=== PATIENT | male | born 1970 | race Caucasian/White ===

== ENCOUNTER 2024-11-12 18:12 | Inpatient (IN) | payer SELFPAY ==
[~2024-11-12] VITALS: Ht 170.2 cm; Wt 108.0 kg
[2024-11-12] MEDS: SODIUM CHLORIDE 0.9% 1000ML 1,000 ML IV STA ×3 (19:07→23:53)
[2024-11-12] MEDS: FAMOTIDINE 20 MG/2 ML VIAL IV STA (19:07)
[2024-11-12] MEDS: ONDANSETRON HCL INJ 2MG/ML 2ML 2 MG/ML VIAL IV STA ×2 (19:07→20:07)
[2024-11-12 19:21] LABS: ALBUMIN 4.3 g/dL (3.5-5.0); ALBUMIN/GLOBULIN RATIO 0.4 (0.8-2.0); BILIRUBIN,TOTAL 0.3 mg/dL (0.2-1.2); CALCIUM 9.5 mg/dL (8.4-10.2); POTASSIUM 3.8 mmol/L (3.5-5.1); TOTAL PROTEIN 15.3 g/dL (6.5-8.1)
[2024-11-12 19:27] LABS: TROPONIN I 0.006 ng/mL (0-0.300)
[2024-11-12 19:44] LABS: BILIRUBIN,URINE NEGATIVE (NEGATIVE); CLARITY,URINE CLEAR (CLEAR); COLOR,URINE YELLOW (YELLOW); GLUCOSE, URINE 500 (NEGATIVE); KETONES,URINE 2+ (NEGATIVE); LEUKOCYTE ESTERASE ,URINE NEGATIVE (NEGATIVE); NITRITE,URINE NEGATIVE (NEGATIVE); PH,URINE 5.5 (5 - 7); PROTEIN,URINE DIPSTICK 1+ (NEGATIVE); URINE UROBILINOGEN 0.2 mg/dL (0.2 - 1)
[2024-11-12 19:46] LABS: AMPHETAMINES SCREEN,URINE NEGATIVE (NEGATIVE); BENZODIAZEPINES SCREEN,URINE POSITIVE (NEGATIVE); CANNABINOIDS SCREEN,URINE NEGATIVE (NEGATIVE); COCAINE SCREEN,URINE NEGATIVE (NEGATIVE); METHADONE SCREEN, URINE NEGATIVE (NEGATIVE); OPIATES SCREEN,URINE NEGATIVE (NEGATIVE); PHENCYCLIDINE SCREEN,URINE NEGATIVE (NEGATIVE)
[2024-11-12 19:49] LABS: BACTERIA,URINE RARE /HPF; EPITHELIAL CELLS,URINE RARE /LPF; RBC,URINE 0-5 /HPF (0-5); WBC,URINE (MAN) 0-5 /HPF (0-5)
[2024-11-12] MEDS: BELLADONNA ALK/PHENOBARBITAL 5 ML UDC PO ONE (20:02)
[2024-11-12] MEDS: LIDOCAINE VISC 2% SOLN 15 ML UDC PO STA (20:02)
[2024-11-12] MEDS: MAGNESIUM/ALUMINUM/SIMETHICONE 30 ML UDC PO STA (20:02)
[2024-11-12] MEDS: Morphine 4mg INJECTION 4 MG/ML INJ IV STA (20:03)
[2024-11-12 20:28] LABS: HEMATOCRIT 41.7 % (38.2-49.6); RED BLOOD COUNT 5.21 x10e6/uL (4.3-5.7); WHITE BLOOD COUNT 15.29 x10e3/uL (4.8-10.8)
[2024-11-12 20:29] LABS: MEAN CORPUSCULAR HEMOGLOBIN 29.2 pg (28-32); MEAN CORPUSCULAR VOLUME 81.1 fL (81-99)
[2024-11-12 20:30] LABS: PLATELET COUNT 321 x10e3/uL (140-360); RED CELL DISTRIBUTION WIDTH 12.7 % (11.7-14.4)
[2024-11-12] MEDS: SODIUM CHLORIDE 0.9% 1000ML 1,000 ML IV SCH (20:30)
[2024-11-12 20:31] LABS: BASOPHILS % 0.5 % (0.0-1.0); EOSINOPHILS % 1.3 % (0.0-6.0); LYMPHOCYTES % 8.2 % (18.0-39.1); MONOCYTES % 4.2 % (4.4-11.3); NEUTROPHILS % 84.6 % (38.7-80.0)
[2024-11-12 20:32] LABS: BASOPHILS # (AUTO) 0.1 (0.0-0.1); EOSINOPHILS # (AUTO) 0.2 (0.0-0.4); LYMPHOCYTES # (AUTO) 1.3 (1.0-3.2); MONOCYTES # (AUTO) 0.6 (0.2-0.8); NEUTROPHILS # (AUTO) 12.9 (2.1-6.9)
[2024-11-12] MEDS: ACETAMINOPHEN 325 MG TAB PO STA (21:15)
[2024-11-12 21:25] LABS: ANION GAP 18.8 mmol/L (8-16)
[2024-11-12] MEDS: OXYMETAZOLINE HCL 0.05% NAS 1 SPRAY BTL SCH (21:39)
[2024-11-12] MEDS ORDERED: IOPAMIDOL 370 MG/ML 100 ML INFUS..BTL INJ ONE (21:52)
[2024-11-12 21:58] LABS: CREATININE, SERUM 1.09 mg/dL (0.72-1.25)
[2024-11-12 23:22] LABS: ABG PCO2 35 mmHg (35-45); ABG PH 7.34 (7.35-7.45)
[2024-11-12 23:23] LABS: ABG HCO3 19 mmol/L (22-26); ABG PO2 79 mmHg (80-105); ABG TCO2 20
[2024-11-12] MEDS: HYDROMORPHONE 1MG/1ML INJ IV STA (23:34)
[2024-11-12] MEDS: ONDANSETRON HCL INJ 2MG/ML 2ML 2 MG/ML VIAL IV PRN (23:35)
[2024-11-12] MEDS ORDERED: ACETAMINOPHEN 1000 MG/100 ML 100 ML IV ONE (23:58)
[2024-11-13] VITALS (13 sets, daily range): BP systolic 94–152; BP diastolic 58–90; PULSE 98–128; RESP 14–26; TEMP 97.7–99.6; O2SAT 93–100
[2024-11-13] MEDS: ACETAMINOPHEN 1000 MG/100 ML IV STA (00:03)
[2024-11-13] MEDS: SODIUM CHLORIDE 0.9% 1000ML 1,000 ML IV ONE (01:46)
[2024-11-13] MEDS: HYDROMORPHONE 1MG/1ML INJ IV STA (02:14)
[2024-11-13] MEDS ORDERED: FLUOXETINE HCL10 MG PO (03:52)
[2024-11-13] MEDS ORDERED: BUPROPION XL150 MG PO (03:52)
[2024-11-13] MEDS ORDERED: METFORMIN HCL500 MG PO (03:56)
[2024-11-13] MEDS ORDERED: ATIVAN1 MG PO (03:56)
[2024-11-13] MEDS ORDERED: FENOFIBRATE134 MG PO (03:56)
[2024-11-13] MEDS ORDERED: ASPIRIN EC81 MG PO (03:58)
[2024-11-13] MEDS ORDERED: LIPITOR20 MG PO (03:58)
[2024-11-13] MEDS: Morphine 4mg INJECTION 4 MG/ML INJ IV PRN (04:30)
[2024-11-13] MEDS: LACTATED RINGER'S 1,000 ML INJ SCH (05:49)
[2024-11-13 06:37] LABS: BASOPHILS % 0.3 % (0.0-1.0); EOSINOPHILS % 0.2 % (0.0-6.0); HEMATOCRIT 42.4 % (38.2-49.6); LYMPHOCYTES # (AUTO) 0.7 (1.0-3.2); LYMPHOCYTES % 5.1 % (18.0-39.1); MEAN CORPUSCULAR HEMOGLOBIN 29.5 pg (28-32); MEAN CORPUSCULAR HGB CONC 35.6 g/dL (31-35); MONOCYTES # (AUTO) 0.6 (0.2-0.8); MONOCYTES % 4.4 % (4.4-11.3); NEUTROPHILS # (AUTO) 12.5 (2.1-6.9); NEUTROPHILS % 89.2 % (38.7-80.0); RED BLOOD COUNT 5.11 x10e6/uL (4.3-5.7); RED CELL DISTRIBUTION WIDTH 13.5 % (11.7-14.4)
[2024-11-13] MEDS ORDERED: VRAYLAR4.5 MG PO (06:55)
[2024-11-13 07:00] LABS: PLATELET COUNT 300 x10e3/uL (140-360); WHITE BLOOD COUNT 14.21 x10e3/uL (4.8-10.8)
[2024-11-13] MEDS ORDERED: 12 HOUR NASAL R15 ML (07:02)
[2024-11-13 07:03] LABS: HEMOGLOBIN 15.1 g/dL (14.0-18.0)
[2024-11-13 07:23] LABS: BAND NEUTROPHILS % (MANUAL) 7 %; LYMPHOCYTES % (MANUAL) 7 % (19-48); MONOCYTES % (MANUAL) 4 % (3.4-9.0); NEUTROPHILS % (MANUAL) 82 % (40-74); PLATELET ESTIMATE ADEQUATE; PLATELET MORPHOLOGY COMMENT NORMAL
[2024-11-13] MEDS: LACTATED RINGER'S 1,000 ML ONE (07:59)
[2024-11-13] MEDS ORDERED: HYDROMORPHONE 1MG/1ML INJ IV PRN (09:30)
[2024-11-13] MEDS: HYDROMORPHONE 1MG/1ML INJ IV ONE (10:12)
[2024-11-13] MEDS ORDERED: INSULIN LISPRO 100 UNIT/1 ML 3ML VIAL SQ SCH (11:30)
[2024-11-13 11:39] LABS: ANION GAP 26.1 mmol/L (8-16); BUN/CREATININE RATIO 6 (6-25); EST GLOMERULAR FILTRATION RATE 97 ML/MIN (>=60)
[2024-11-13 11:42] LABS: POTASSIUM 4.1 mmol/L (3.5-5.1); SODIUM 132 mmol/L (136-145)
[2024-11-13 11:43] LABS: BLOOD UREA NITROGEN 6 mg/dL (7-26); CARBON DIOXIDE 17 mmol/L (22-29); CHLORIDE 93 mmol/L (98-107); CREATININE, SERUM 0.94 mg/dL (0.72-1.25)
[2024-11-13 11:44] LABS: CALCIUM 7.1 mg/dL (8.4-10.2); GLUCOSE 241 mg/dL (74-118)
[2024-11-13 11:45] LABS: ALANINE AMINOTRANSFERASE 21 IU/L (0-55); BILIRUBIN,TOTAL < 0.2 mg/dL (0.2-1.2); TOTAL PROTEIN 6.3 g/dL (6.5-8.1)
[2024-11-13 11:46] LABS: ALKALINE PHOSPHATASE 88 IU/L (40-150)
[2024-11-13] MEDS: MUPIROCIN 2% OINT 22 GM TUBE TOP SCH (12:00)
[2024-11-13] MEDS ORDERED: DEXTROSE 50% SYRINGE 50 ML IV PRN (12:15)
[2024-11-13] MEDS: INSULIN LISPRO 100 UNIT/1 ML 3ML VIAL SQ SCH (14:21)
[2024-11-13] MEDS: HYDROMORPHONE 1MG/1ML INJ IV PRN (14:22)
[2024-11-13] MEDS ORDERED: POTASSIUM CHLORIDE 20MEQ/100ML 200 ML IV PRN (19:15)
[2024-11-13] MEDS: DEXTROSE 5%/0.45% SOD CHL 1,000 ML IV SCH (19:15)
[2024-11-13] MEDS: SODIUM CHLORIDE 0.9% 1000ML 1,000 ML IV SCH (20:22)
[2024-11-13] MEDS: INSULIN REGULAR, HUMAN 3ML VL 100 UNIT in SODIUM CHLORIDE 0.9% 99 ML IV SCH (20:26)
[2024-11-13] MEDS: BUPROPION HCL 150 MG TABCR PO SCH (21:48)
[2024-11-13] MEDS: CARIPRAZINE HCL 4.5 MG PO SCH (21:48)
[2024-11-13] MEDS: FLUOXETINE HCL 10 MG CAP PO SCH (21:49)
[2024-11-13] MEDS: LORAZEPAM 1 MG TAB PO SCH (21:49)
[2024-11-13] MEDS: LORAZEPAM 0.5 MG TAB ONE (21:53)
[2024-11-13] MEDS: BUPROPION HCL 150 MG TABCR ONE (21:53)
[2024-11-13 23:00] LABS: ANION GAP 17.2 mmol/L (8-16); CREATININE, SERUM 1.31 mg/dL (0.72-1.25); MAGNESIUM 1.5 MG/DL (1.3-2.1); POTASSIUM 4.2 mmol/L (3.5-5.1)
[2024-11-13 23:10] LABS: CALCIUM 6.9 mg/dL (8.4-10.2)
[2024-11-13] MEDS: MAGNESIUM SULF 1GRAM/DEXTROSE 100 ML IV PRN (23:25)
[2024-11-13] MEDS ORDERED: HYDRALAZINE HCL 20 MG/ML VIAL IV PRN (23:45)
[2024-11-13] MEDS ORDERED: GUAIFENESIN/DEXTROMETHORPHAN LIQD 5 ML UDC PO PRN (23:45)
[2024-11-14] VITALS (29 sets, daily range): BP systolic 99–137; BP diastolic 55–104; PULSE 90–129; RESP 16–26; TEMP 97.3–100; O2SAT 91–100
[2024-11-14] MEDS: DEXTROSE 50% SYRINGE 50 ML IV PRN (01:11)
[2024-11-14] MEDS: FENOFIBRATE 145 MG TAB PO STA (01:55)
[2024-11-14 04:02] LABS: ANION GAP 14.5 mmol/L (8-16); CREATININE, SERUM 1.29 mg/dL (0.72-1.25); MAGNESIUM 1.7 MG/DL (1.3-2.1); POTASSIUM 3.5 mmol/L (3.5-5.1)
[2024-11-14 04:06] LABS: CALCIUM 6.7 mg/dL (8.4-10.2)
[2024-11-14] MEDS: CALCIUM CHLORIDE 10% SYRINGE 20 ML IV ONE (04:53)
[2024-11-14] MEDS: SODIUM CHLORIDE 0.9% 250ML 250 ML ONE (04:53)
[2024-11-14] MEDS: CALCIUM CHLORIDE IV ONE (04:54)
[2024-11-14] MEDS: SODIUM CHLORIDE 0.9% IV ONE (04:54)
[2024-11-14 06:47] LABS: BASOPHILS % 0.6 % (0.0-1.0); EOSINOPHILS # (AUTO) 0.1 (0.0-0.4); EOSINOPHILS % 1.3 % (0.0-6.0); HEMATOCRIT 40.3 % (38.2-49.6); LYMPHOCYTES # (AUTO) 0.7 (1.0-3.2); LYMPHOCYTES % 9.8 % (18.0-39.1); MEAN CORPUSCULAR HEMOGLOBIN 29.7 pg (28-32); MEAN CORPUSCULAR HGB CONC 34.7 g/dL (31-35); MEAN CORPUSCULAR VOLUME 85.6 fL (81-99); MONOCYTES # (AUTO) 0.4 (0.2-0.8); MONOCYTES % 5.7 % (4.4-11.3); NEUTROPHILS # (AUTO) 5.9 (2.1-6.9); NEUTROPHILS % 81.9 % (38.7-80.0); PLATELET COUNT 194 x10e3/uL (140-360); RED BLOOD COUNT 4.71 x10e6/uL (4.3-5.7); RED CELL DISTRIBUTION WIDTH 13.7 % (11.7-14.4); WHITE BLOOD COUNT 7.14 x10e3/uL (4.8-10.8)
[2024-11-14 07:31] LABS: ALBUMIN 2.3 g/dL (3.5-5.0); ALBUMIN/GLOBULIN RATIO 0.7 (0.8-2.0); ANION GAP 13.3 mmol/L (8-16); CALCIUM 7.3 mg/dL (8.4-10.2); CREATININE, SERUM 1.1 mg/dL (0.72-1.25); MAGNESIUM 1.5 MG/DL (1.3-2.1); TOTAL PROTEIN 5.8 g/dL (6.5-8.1)
[2024-11-14 07:32] LABS: POTASSIUM 3.3 mmol/L (3.5-5.1)
[2024-11-14] MEDS: MULTIVITAMINS/MINERALS TAB PO SCH (08:37)
[2024-11-14] MEDS: FENOFIBRATE 145 MG TAB PO SCH (08:37)
[2024-11-14] MEDS: MUPIROCIN 2% OINT 22 GM TUBE TOP SCH (08:38)
[2024-11-14] MEDS: MAGNESIUM SULF 1GRAM/DEXTROSE 100 ML IV ONE (08:40)
[2024-11-14] MEDS: POTASSIUM CHLORIDE 20MEQ/100ML 100 ML IV PRN (09:02)
[2024-11-14 12:18] LABS: ANION GAP 10.6 mmol/L (8-16); CALCIUM 7.9 mg/dL (8.4-10.2); CREATININE, SERUM 1.06 mg/dL (0.72-1.25); MAGNESIUM 1.8 MG/DL (1.3-2.1); POTASSIUM 3.6 mmol/L (3.5-5.1)
[2024-11-14] MEDS: LORAZEPAM 1 MG TAB PO SCH (13:06)
[2024-11-14] MEDS: ENOXAPARIN SOD INJ 40 MG/0.4 ML SYR SC SCH (16:28)
[2024-11-14] MEDS: LORAZEPAM 0.5 MG TAB PO SCH (16:50)
[2024-11-14 20:00] LABS: ANION GAP 12.8 mmol/L (8-16); CALCIUM 7.6 mg/dL (8.4-10.2); CREATININE, SERUM 0.86 mg/dL (0.72-1.25); MAGNESIUM 1.9 MG/DL (1.3-2.1); POTASSIUM 3.8 mmol/L (3.5-5.1)
[2024-11-15] VITALS (22 sets, daily range): BP systolic 90–138; BP diastolic 64–101; PULSE 79–106; RESP 14–26; TEMP 98.4–99.4; O2SAT 83–100
[2024-11-15 05:19] LABS: ALANINE AMINOTRANSFERASE 16 IU/L (0-55); ALBUMIN 0.8 g/dL (3.5-5.0); ALBUMIN/GLOBULIN RATIO 0.7 (0.8-2.0); ALKALINE PHOSPHATASE 25 IU/L (40-150); BILIRUBIN,TOTAL 0.4 mg/dL (0.2-1.2); BLOOD UREA NITROGEN < 5 mg/dL (7-26); CARBON DIOXIDE 11 mmol/L (22-29); CHLORIDE 85 mmol/L (98-107); CREATININE, SERUM 0.85 mg/dL (0.72-1.25); EST GLOMERULAR FILTRATION RATE 104 ML/MIN (>=60); LIPASE 88 U/L (8-78); TOTAL PROTEIN 1.9 g/dL (6.5-8.1)
[2024-11-15 06:00] LABS: BUN/CREATININE RATIO 6 (6-25)
[2024-11-15 08:34] LABS: CALCIUM 7.9 mg/dL (8.4-10.2); GLUCOSE 140 mg/dL (74-118); POTASSIUM 3.5 mmol/L (3.5-5.1); SODIUM 130 mmol/L (136-145)
[2024-11-15 08:36] LABS: ANION GAP 37.5 mmol/L (8-16)
[2024-11-15 16:34] LABS: ANION GAP 14.7 mmol/L (8-16); CALCIUM 8.4 mg/dL (8.4-10.2); CREATININE, SERUM 0.84 mg/dL (0.72-1.25); POTASSIUM 3.7 mmol/L (3.5-5.1)
[2024-11-15] MEDS: CARIPRAZINE HCL 4.5 MG PO SCH (16:54)
[2024-11-15 20:48] LABS: ANION GAP 12.2 mmol/L (8-16); CALCIUM 8.1 mg/dL (8.4-10.2); CREATININE, SERUM 0.79 mg/dL (0.72-1.25); MAGNESIUM 1.8 MG/DL (1.3-2.1)
[2024-11-15 20:49] LABS: POTASSIUM 3.2 mmol/L (3.5-5.1)
[2024-11-15] MEDS: ACETAMINOPHEN 325 MG TAB PO PRN (22:18)
[2024-11-16] VITALS (17 sets, daily range): BP systolic 115–160; BP diastolic 62–93; PULSE 88–105; RESP 14–26; TEMP 97.9–99.1; O2SAT 93–100
[2024-11-16 05:08] LABS: BASOPHILS # (AUTO) 0.1 (0.0-0.1); BASOPHILS % 0.8 % (0.0-1.0); EOSINOPHILS # (AUTO) 0.4 (0.0-0.4); EOSINOPHILS % 3.6 % (0.0-6.0); HEMATOCRIT 36.8 % (38.2-49.6); LYMPHOCYTES # (AUTO) 0.6 (1.0-3.2); LYMPHOCYTES % 6.1 % (18.0-39.1); MEAN CORPUSCULAR HEMOGLOBIN 28.8 pg (28-32); MEAN CORPUSCULAR HGB CONC 32.6 g/dL (31-35); MEAN CORPUSCULAR VOLUME 88.2 fL (81-99); MONOCYTES # (AUTO) 0.8 (0.2-0.8); MONOCYTES % 7.4 % (4.4-11.3); NEUTROPHILS # (AUTO) 8.3 (2.1-6.9); NEUTROPHILS % 81.6 % (38.7-80.0); PLATELET COUNT 239 x10e3/uL (140-360); RED BLOOD COUNT 4.17 x10e6/uL (4.3-5.7); RED CELL DISTRIBUTION WIDTH 13.3 % (11.7-14.4); WHITE BLOOD COUNT 10.16 x10e3/uL (4.8-10.8)
[2024-11-16 05:44] LABS: ALANINE AMINOTRANSFERASE 38 IU/L (0-55); ALBUMIN 2.4 g/dL (3.5-5.0); ALBUMIN/GLOBULIN RATIO 0.7 (0.8-2.0); ALKALINE PHOSPHATASE 221 IU/L (40-150); BILIRUBIN,TOTAL 1.1 mg/dL (0.2-1.2); BLOOD UREA NITROGEN < 5 mg/dL (7-26); CALCIUM 8.8 mg/dL (8.4-10.2); CARBON DIOXIDE 27 mmol/L (22-29); CHLORIDE 99 mmol/L (98-107); CREATININE, SERUM 0.85 mg/dL (0.72-1.25); EST GLOMERULAR FILTRATION RATE 104 ML/MIN (>=60); GLUCOSE 73 mg/dL (74-118); MAGNESIUM 1.7 MG/DL (1.3-2.1)
[2024-11-16 05:45] LABS: BUN/CREATININE RATIO 6 (6-25)
[2024-11-16 05:46] LABS: SODIUM 135 mmol/L (136-145)
[2024-11-16] MEDS: LIDOCAINE 4% PATCH TP ONE ×2 (06:27→06:37)
[2024-11-16] MEDS ORDERED: DEXTROSE 50% SYRINGE 50 ML IV PRN (10:45)
[2024-11-16] MEDS: INSULIN REGULAR, HUMAN 100 UNIT/1 ML SQ SCH (11:30)
[2024-11-16] MEDS: LORATADINE 10 MG TAB PO SCH (11:33)
[2024-11-16] MEDS: POTASSIUM CHLORIDE 20 MEQ TAB CR PO ONE (11:33)
[2024-11-16 12:17] LABS: BAND NEUTROPHILS % (MANUAL) 15 %; EOSINOPHILS % (MANUAL) 4 % (0-7); LYMPHOCYTES % (MANUAL) 2 % (19-48); MONOCYTES % (MANUAL) 6 % (3.4-9.0); NEUTROPHILS % (MANUAL) 73 % (40-74)
[2024-11-16 12:19] LABS: PLATELET ESTIMATE ADEQUATE; PLATELET MORPHOLOGY COMMENT NORMAL
[2024-11-16 12:20] LABS: RBC MORPHOLOGY COMMENT NORMAL
[2024-11-16 12:22] LABS: ROULEAU MODERATE
[2024-11-16] MEDS: MAGNESIUM/ALUMINUM/SIMETHICONE 30 ML UDC PO PRN (13:44)
[2024-11-16] MEDS: HYDROCODONE/APAP 5MG-325MG TAB PO PRN (17:59)
[2024-11-16] MEDS: LORAZEPAM 0.5 MG TAB PO SCH (21:12)
[2024-11-16] MEDS: INSULIN GLARGINE 100 UNITS/ML VIAL SQ SCH (21:26)
[2024-11-16] MEDS ORDERED: Morphine 4mg INJECTION 4 MG/ML INJ IV PRN (22:30)
[2024-11-16] MEDS: Morphine 4mg INJECTION 4 MG/ML INJ IV PRN (22:49)
[2024-11-16] MEDS: MELATONIN 3 MG TAB PO PRN (22:49)
[2024-11-16 23:23] LABS: BASOPHILS % 0.4 % (0.0-1.0); EOSINOPHILS # (AUTO) 0.3 (0.0-0.4); EOSINOPHILS % 2.4 % (0.0-6.0); HEMATOCRIT 33.8 % (38.2-49.6); HEMOGLOBIN 11.5 g/dL (14.0-18.0); LYMPHOCYTES # (AUTO) 0.7 (1.0-3.2); LYMPHOCYTES % 6.3 % (18.0-39.1); MEAN CORPUSCULAR HEMOGLOBIN 29.3 pg (28-32); MONOCYTES # (AUTO) 1.2 (0.2-0.8); MONOCYTES % 11.2 % (4.4-11.3); NEUTROPHILS # (AUTO) 8.5 (2.1-6.9); NEUTROPHILS % 77.1 % (38.7-80.0); PLATELET COUNT 225 x10e3/uL (140-360); RED BLOOD COUNT 3.93 x10e6/uL (4.3-5.7); RED CELL DISTRIBUTION WIDTH 13.1 % (11.7-14.4); WHITE BLOOD COUNT 11.03 x10e3/uL (4.8-10.8)
[2024-11-16 23:45] LABS: ANION GAP 14.4 mmol/L (8-16); CREATININE, SERUM 0.85 mg/dL (0.72-1.25)
[2024-11-16 23:54] LABS: POTASSIUM 3.4 mmol/L (3.5-5.1)
[2024-11-17] VITALS (9 sets, daily range): BP systolic 128–141; BP diastolic 79–87; PULSE 94–106; RESP 16–19; TEMP 97.5–99.3; O2SAT 95–100
[2024-11-17] MEDS: DIPHENHYDRAMINE HCL 25 MG CAP PO PRN (04:45)
[2024-11-17 05:06] LABS: BASOPHILS # (AUTO) 0.1 (0.0-0.1); BASOPHILS % 0.8 % (0.0-1.0); EOSINOPHILS # (AUTO) 0.3 (0.0-0.4); EOSINOPHILS % 2.2 % (0.0-6.0); HEMATOCRIT 33.6 % (38.2-49.6); HEMOGLOBIN 10.9 g/dL (14.0-18.0); LYMPHOCYTES % 8.6 % (18.0-39.1); MEAN CORPUSCULAR HEMOGLOBIN 28.7 pg (28-32); MEAN CORPUSCULAR HGB CONC 32.4 g/dL (31-35); MEAN CORPUSCULAR VOLUME 88.4 fL (81-99); MONOCYTES # (AUTO) 1.3 (0.2-0.8); MONOCYTES % 11.7 % (4.4-11.3); NEUTROPHILS # (AUTO) 8.1 (2.1-6.9); NEUTROPHILS % 72.7 % (38.7-80.0); PLATELET COUNT 222 x10e3/uL (140-360); RED CELL DISTRIBUTION WIDTH 13.1 % (11.7-14.4); WHITE BLOOD COUNT 11.15 x10e3/uL (4.8-10.8)
[2024-11-17 05:32] LABS: ANION GAP 14.4 mmol/L (8-16); CREATININE, SERUM 0.83 mg/dL (0.72-1.25); MAGNESIUM 1.6 MG/DL (1.3-2.1)
[2024-11-17 05:38] LABS: POTASSIUM 3.4 mmol/L (3.5-5.1)
[2024-11-17] MEDS: DOCUSATE SODIUM 100 MG CAP PO PRN (07:33)
[2024-11-17 16:06] LABS: ANION GAP 15.4 mmol/L (8-16); CALCIUM 9.3 mg/dL (8.4-10.2); CREATININE, SERUM 0.93 mg/dL (0.72-1.25)
[2024-11-17 16:12] LABS: POTASSIUM 3.4 mmol/L (3.5-5.1)
[2024-11-18] VITALS (7 sets, daily range): BP systolic 135–149; BP diastolic 85–90; PULSE 92–104; RESP 18–21; TEMP 98.3–99.2; O2SAT 96–100
[2024-11-18 05:10] LABS: BASOPHILS # (AUTO) 0.1 (0.0-0.1); BASOPHILS % 0.7 % (0.0-1.0); EOSINOPHILS # (AUTO) 0.2 (0.0-0.4); EOSINOPHILS % 2.3 % (0.0-6.0); HEMATOCRIT 34.3 % (38.2-49.6); LYMPHOCYTES # (AUTO) 0.9 (1.0-3.2); LYMPHOCYTES % 8.5 % (18.0-39.1); MEAN CORPUSCULAR HEMOGLOBIN 28.6 pg (28-32); MEAN CORPUSCULAR HGB CONC 32.1 g/dL (31-35); MEAN CORPUSCULAR VOLUME 89.1 fL (81-99); MONOCYTES # (AUTO) 1.2 (0.2-0.8); MONOCYTES % 11.4 % (4.4-11.3); NEUTROPHILS # (AUTO) 6.6 (2.1-6.9); PLATELET COUNT 236 x10e3/uL (140-360); RED BLOOD COUNT 3.85 x10e6/uL (4.3-5.7); RED CELL DISTRIBUTION WIDTH 13.3 % (11.7-14.4); WHITE BLOOD COUNT 10.16 x10e3/uL (4.8-10.8)
[2024-11-18 05:41] LABS: ALBUMIN 2.3 g/dL (3.5-5.0); ALBUMIN/GLOBULIN RATIO 0.6 (0.8-2.0); ANION GAP 15.3 mmol/L (8-16); BILIRUBIN,TOTAL 0.9 mg/dL (0.2-1.2); CALCIUM 8.5 mg/dL (8.4-10.2); CREATININE, SERUM 0.88 mg/dL (0.72-1.25)
[2024-11-18 05:44] LABS: POTASSIUM 3.3 mmol/L (3.5-5.1)
[2024-11-18 09:19] LABS: BAND NEUTROPHILS % (MANUAL) 9 %; EOSINOPHILS % (MANUAL) 2 % (0-7); LYMPHOCYTES % (MANUAL) 8 % (19-48); METAMYELOCYTES % (MANUAL) 6 % (0-0); MONOCYTES % (MANUAL) 11 % (3.4-9.0); MYELOCYTES % (MANUAL) 7 % (0-0); NEUTROPHILS % (MANUAL) 56 % (40-74); PROMYELOCYTES % (MANUAL) 1 % (0-0)
[2024-11-18 09:20] LABS: PLATELET ESTIMATE ADEQUATE; PLATELET MORPHOLOGY COMMENT NORMAL
[2024-11-18] MEDS: MAGNESIUM HYDROXIDE 30 ML UDC PO STA (13:54)
[2024-11-18] MEDS: BISACODYL 5 MG TAB EC PO ONE (17:56)
[2024-11-19 12:25] LABS: ABG HCO3 19 mmol/L (22-26); ABG PCO2 35 mmHg (35-45); ABG PH 7.35 (7.35-7.45); ABG PO2 79 mmHg (80-105); ABG TCO2 20
== END 2024-11-18 19:30 | disposition home or self-care (01) | DRG 438 ==
LOC: ER 18:21 → ERHOLD 20:25 → MED/SURG3 11-13 01:17 → ICU 11-13 20:21 → MED/SURG 11-16 20:09
PROVIDERS: ADMIT Family Medicine; ATTEND Family Medicine
PROC: 4A033R1 Measurement of Arterial Saturation, Peripheral, Percutaneous Approach (ICD-10-PCS; principal; 2024-11-12)
PROC: 4A033R1 Measurement of Arterial Saturation, Peripheral, Percutaneous Approach (ICD-10-PCS; 2024-11-12)
DX: K85.80 Other acute pancreatitis without necrosis or infection (principal); E11.10 Type 2 diabetes mellitus with ketoacidosis without coma; E87.1 Hypo-osmolality and hyponatremia; N17.9 Acute kidney failure, unspecified; E78.1 Pure hyperglyceridemia; K76.0 Fatty (change of) liver, not elsewhere classified; E11.69 Type 2 diabetes mellitus with other specified complication; Z79.84 Long term (current) use of oral hypoglycemic drugs; E87.6 Hypokalemia; K59.00 Constipation, unspecified; R06.89 Other abnormalities of breathing; F31.9 Bipolar disorder, unspecified; F41.9 Anxiety disorder, unspecified; E78.5 Hyperlipidemia, unspecified; E66.01 Morbid (severe) obesity due to excess calories; Z68.38 Body mass index [BMI] 38.0-38.9, adult; Z91.148 Patient's other noncompliance with medication regimen for other reason; Z71.81 Spiritual or religious counseling; Z79.899 Other long term (current) drug therapy; Z79.82 Long term (current) use of aspirin
CPT/HCPCS: 36415; 36600; 74177; 80048; 80053; 80307; 81001; 82550; 82805; 82948; 83036; 83605; 83690; 83735; 84100; 84478; 84484; 85025; 87040; 87086; 93005; 94799; 96361; 96365; 99252; 99284; J1171; J1308; J1650; J1815; J2270; J2405; J2543; J3475; J3480; J7030; J7050; J7799; Q9967